=== PATIENT | male | born 1960 | race Caucasian/White ===

== ENCOUNTER → 2024-09-21 | Day surgery (SDC) | payer MEDICARE ==
[2024-09-17 12:15] LABS: BASOPHILS % 2.1 % (0.0-1.0); EOSINOPHILS % 2.2 % (0.0-6.0); LYMPHOCYTES % 40.0 % (18.0-39.1); MONOCYTES % 11.4 % (4.4-11.3); NEUTROPHILS % 43.4 % (38.7-80.0); RED CELL DISTRIBUTION WIDTH 12.8 % (11.7-14.4)
[2024-09-17 12:36] LABS: INR 0.88
[2024-09-17 12:42] LABS: EST GLOMERULAR FILTRATION RATE 106.0 ML/MIN (>=60)
[~2024-09-21] MED LIST: ALBUTEROL/IPRATROPIUM 3 ML NEB NEB ONE; EPINEPHRINE HCL 1:1000 1ML 1 MG/ML AMP ONE; FOLIC ACID0.4 MG PO; GLUCAGON FOR INJ 1 MG VIAL ONE; HYOSCYAMINE SULFATE 0.5 MG/ML INJ ONE; LIDOCAINE HCL 2% LOCAL INJ 5 ML SDV VIAL INJ ONE; MIDAZOLAM HCL 2 MG/2 ML VIAL ONE; PANTOPRAZOLE SO40 MG PO; PHENYLEPHRINE HCL 1% 10 MG/ML VIAL ONE; PROPOFOL IV EMULSION 50 ML IV ONE; SPIRONOLACTONE25 MG PO; TOPIRAMATE25 MG PO; VITAMIN B150 MG PO; VITAMIN D310 MCG PO
[2024-09-21] MEDS: LACTATED RINGER'S 1,000 ML ONE (09:21)
[2024-09-21 09:42] VITALS: PULSE 74; RESP 18; O2SAT 96
[2024-09-21 10:58] VITALS: TEMP 97.3
[2024-09-21 11:13] VITALS: BP 117/78; PULSE 95; RESP 16; O2SAT 93
== END | disposition home or self-care (01) ==
LOC: OR 08:53
PROVIDERS: ATTEND Internal Medicine Gastroenterology
DX: Z12.11 Encounter for screening for malignant neoplasm of colon (principal); D12.3 Benign neoplasm of transverse colon; D12.4 Benign neoplasm of descending colon; D12.8 Benign neoplasm of rectum; K29.50 Unspecified chronic gastritis without bleeding; K22.2 Esophageal obstruction; K21.00 Gastro-esophageal reflux disease with esophagitis, without bleeding; K29.80 Duodenitis without bleeding; K59.00 Constipation, unspecified; K64.8 Other hemorrhoids; K74.60 Unspecified cirrhosis of liver; R06.02 Shortness of breath; F17.210 Nicotine dependence, cigarettes, uncomplicated; F10.10 Alcohol abuse, uncomplicated; Z01.810 Encounter for preprocedural cardiovascular examination; Z01.812 Encounter for preprocedural laboratory examination; Z79.899 Other long term (current) drug therapy
CPT/HCPCS: 36415; 43450; 45384; 45385; 80053; 85025; 85610; 85730; 88305; 93005; 94640; 94799; J0169; J1610; J1980; J2003; J2250; J2371